=== PATIENT | female | born 1945 | race Caucasian/White ===

== ENCOUNTER → 2016-11-25 08:26 | Outpatient (CLI) | payer MEDICARE | END | disposition home or self-care (01) | LOC: D.MRI 08:00 | DX: R10.9 Unspecified abdominal pain (principal) ==

== ENCOUNTER → 2016-12-16 13:09 | Outpatient (CLI) | payer MEDICARE ==
[2016-12-16 13:56] LABS: ALBUMIN 3.8 g/dL (3.4-5.0); BILIRUBIN - DIRECT 0.09 mg/dL (0.00-0.30); BILIRUBIN - INDIRECT 0.51 mg/dL (0.00-1.00); BILIRUBIN - TOTAL 0.6 mg/dL (0.2-1.3); PROTEIN - SERUM 6.8 g/dL (6.4-8.2)
== END | disposition home or self-care (01) ==
LOC: D.LAB 12-15 11:45
PROVIDERS: Internal Medicine Gastroenterology
DX: R74.8 Abnormal levels of other serum enzymes (principal)

== ENCOUNTER → 2017-01-19 12:35 | Outpatient (CLI) | payer MEDICARE ==
[2017-01-19 13:33] LABS: ALBUMIN 3.6 g/dL (3.4-5.0); BILIRUBIN - DIRECT 0.09 mg/dL (0.00-0.30); BILIRUBIN - INDIRECT 0.19 mg/dL (0.00-1.00); BILIRUBIN - TOTAL 0.28 mg/dL (0.2-1.3); PROTEIN - SERUM 7.1 g/dL (6.4-8.2)
== END | disposition home or self-care (01) ==
LOC: D.LAB 01-17 08:00
PROVIDERS: Internal Medicine Gastroenterology
DX: R74.8 Abnormal levels of other serum enzymes (principal)

== ENCOUNTER 2017-03-19 15:12 | Emergency (ER) | payer MEDICARE ==
[2017-03-19 15:40] LABS: BASOPHILS 0.5 % (0-2); EOSINOPHILS 1.4 % (0-7); HEMATOCRIT 38.8 % (36.0-48.0); HEMOGLOBIN 12.8 g/dL (12-16); IMMATURE GRANULOCYTES 0.2 % (0-5); MCH 30.7 pg (26.0-34.0); MONOCYTES 8.3 % (2-11); NEUTROPHILS 62.6 % (40-80); PLATELET COUNT 209 10x3/uL (130-400); RBC 4.17 10x6/uL (4.00-5.40); RDW 14.3 % (11.5-14.5); WBC 6.5 10x3/uL (4.8-10.8)
[2017-03-19 15:59] LABS: ALBUMIN 4.2 g/dL (3.4-5.0); ANION GAP 9.6 mmol/L (8-16); BILIRUBIN - TOTAL 0.34 mg/dL (0.2-1.3); CALCIUM 9.5 mg/dL (8.5-10.1); CARBON DIOXIDE 30.7 mmol/L (21.0-32.0); CREATININE - SERUM 1.2 mg/dL (0.6-1.3); POTASSIUM - SERUM 4.3 mmol/L (3.5-5.1); PROTEIN - SERUM 7.4 g/dL (6.4-8.2)
[2017-03-19 17:15] LABS: APPEARANCE CLEAR (CLEAR); BILIRUBIN NEGATIVE (NEGATIVE); COLOR STRAW (YELLOW); GLUCOSE NEGATIVE (NEGATIVE); KETONE NEGATIVE (NEGATIVE); LEUKOCYTE ESTERASE NEGATIVE (NEGATIVE); NITRITE NEGATIVE (NEGATIVE); PROTEIN NEGATIVE (NEGATIVE); SPECIFIC GRAVITY 1.005 (1.005-1.020); UROBILINOGEN NORMAL (NORMAL)
== END 2017-03-19 19:13 | disposition home or self-care (01) ==
LOC: D.ER 15:12
PROVIDERS: Emergency Medicine
DX: K29.00 Acute gastritis without bleeding (principal); R00.1 Bradycardia, unspecified; J45.909 Unspecified asthma, uncomplicated; J44.9 Chronic obstructive pulmonary disease, unspecified; M79.7 Fibromyalgia; K58.9 Irritable bowel syndrome, unspecified

== ENCOUNTER → 2018-10-02 16:31 | Outpatient (CLI) | payer MEDICARE | END | disposition home or self-care (01) | LOC: D.MRI 16:30 | DX: M54.12 Radiculopathy, cervical region (principal) ==

== ENCOUNTER 2019-10-07 14:32 | Emergency (ER) | payer MEDICARE ==
[~2019-10-07] VITALS: Ht 162.6 cm; Wt 45.5 kg
[2019-10-07 14:46] VITALS: Ht 162.6 cm; Wt 45.5 kg
[2019-10-07] MEDS ORDERED: VENTOLIN (14:50)
[2019-10-07] MEDS ORDERED: ZANAFLEX4 MG PO (14:50)
[2019-10-07] MEDS ORDERED: ULTRAM50 MG PO (14:51)
[2019-10-07] MEDS ORDERED: CYMBALTA30 MG PO (14:51)
[2019-10-07] MEDS ORDERED: ATIVAN1 MG PO (14:51)
[2019-10-07] MEDS ORDERED: ZOFRAN8 MG PO (14:52)
[2019-10-07] MEDS ORDERED: ADVAIR HFA [SP]12 GM INH (14:52)
[2019-10-07] MEDS ORDERED: LYRICA75 MG PO (14:52)
[2019-10-07] MEDS ORDERED: MAG-OX 400 MG400 MG PO (14:52)
[2019-10-07] MEDS ORDERED: DEXILANT60 MG PO (14:52)
[2019-10-07] MEDS ORDERED: [UNRECOGNIZED DRUG - OTHER] (14:53)
[2019-10-07 15:15] LABS: BASOPHILS 0.3 % (0-2); EOSINOPHILS 0.5 % (0-7); HEMATOCRIT 36.6 % (36.0-48.0); IMMATURE GRANULOCYTES 0.1 % (0-5); LYMPHOCYTES 29.3 % (15-50); MCH 30.3 pg (26.0-34.0); MCHC 32.8 g/dL (31.0-37.0); MCV 92.4 fL (80.0-100.0); MEAN PLATELET VOLUME 10.7 fL (7.4-10.4); MONOCYTES 7.8 % (2-11); PLATELET COUNT 219 10x3/uL (130-400); RBC 3.96 10x6/uL (4.00-5.40); RDW 15.3 % (11.5-14.5); WBC 7.5 10x3/uL (4.8-10.8)
[2019-10-07 15:34] LABS: CALC OSMOLALITY 282 mosm/kg (275-300); CALCIUM 9.1 mg/dL (8.5-10.1); CARBON DIOXIDE 34.6 mmol/L (21.0-32.0); CHLORIDE - SERUM 101 mmol/L (98-107); GLUCOSE 90 mg/dL (74-106); POTASSIUM - SERUM 3.1 mmol/L (3.5-5.1); SODIUM 141 mmol/L (136-145); UREA NITROGEN 18 mg/dL (7-18); eGFR NON AFRICAN AMERICAN 57 mL/min (90-120)
[2019-10-07 15:43] LABS: ALBUMIN 3.5 g/dL (3.4-5.0); ALKALINE PHOSPHATASE 147 U/L (46-116); ALT (SGPT) 29 U/L (10-68); AMYLASE - SERUM 26 U/L (25-115); BILIRUBIN - TOTAL 0.27 mg/dL (0.2-1.3); LIPASE 54 U/L (73-393); PROTEIN - SERUM 7.5 g/dL (6.4-8.2)
[2019-10-07 15:44] LABS: TROPONIN-I < 0.017 ng/mL (0.000-0.060)
[2019-10-07 15:45] LABS: APPEARANCE CLEAR (CLEAR); BILIRUBIN NEGATIVE (NEGATIVE); COLOR YELLOW (YELLOW); GLUCOSE NEGATIVE (NEGATIVE); KETONE NEGATIVE (NEGATIVE); NITRITE NEGATIVE (NEGATIVE); PROTEIN NEGATIVE (NEGATIVE); SPECIFIC GRAVITY 1.005 (1.005-1.020); UROBILINOGEN NORMAL (NORMAL)
[2019-10-07] MEDS ORDERED: MIRALAX17 GM PO (17:40)
[2019-10-07 17:51] VITALS: BP 122/65
== END 2019-10-07 17:53 | disposition home or self-care (01) ==
LOC: D.ER 14:32
PROVIDERS: Family Medicine
DX: K59.00 Constipation, unspecified (principal); R10.84 Generalized abdominal pain; R11.0 Nausea; J44.9 Chronic obstructive pulmonary disease, unspecified; F17.210 Nicotine dependence, cigarettes, uncomplicated; K21.9 Gastro-esophageal reflux disease without esophagitis; M79.7 Fibromyalgia

== ENCOUNTER → 2020-02-05 14:03 | Outpatient (CLI) | payer MEDICARE ==
[2019-12-20 06:38] VITALS: BMI 17.2
[~2020-02-05 14:03] MED LIST: ADVAIR HFA [SP]12 GM INH; ATIVAN1 MG PO; BACLOFEN10 MG PO; CYMBALTA30 MG PO; DEXILANT60 MG PO; HYDROCODON-ACE1 EAC7 PO; LYRICA75 MG PO; MAG-OX 400 MG400 MG PO; MIRALAX17 GM PO; ONDANSETRON ODT8 MG PO; OXYBUTYNIN CHLOR5 MG PO; ULTRAM50 MG PO; VENTOLIN INH; ZANAFLEX4 MG PO; ZOFRAN8 MG PO; [UNRECOGNIZED DRUG - OTHER]
[2020-02-05 14:38] LABS: ALBUMIN 3.3 g/dL (3.4-5.0); ANION GAP 10.6 mmol/L (8-16); BILIRUBIN - TOTAL 0.25 mg/dL (0.2-1.3); CALCIUM 8.6 mg/dL (8.5-10.1); CARBON DIOXIDE 30.9 mmol/L (21.0-32.0); CREATININE - SERUM 0.9 mg/dL (0.6-1.3); POTASSIUM - SERUM 4.5 mmol/L (3.5-5.1); PROTEIN - SERUM 6.5 g/dL (6.4-8.2)
[2020-02-05 14:58] LABS: HEMATOCRIT 36.2 % (36.0-48.0); HEMOGLOBIN 11.3 g/dL (12-16); MCH 28.9 pg (26.0-34.0); MCHC 31.2 g/dL (31.0-37.0); MCV 92.6 fL (80.0-100.0); MEAN PLATELET VOLUME 11.5 fL (7.4-10.4); RBC 3.91 10x6/uL (4.00-5.40); RDW 15.5 % (11.5-14.5); WBC 6.1 10x3/uL (4.8-10.8)
[2020-02-05 15:12] LABS: PLATELET COUNT 267 10x3/uL (130-400)
[2020-02-05 15:45] LABS: EOSINOPHILS 3 % (0-7); LYMPHOCYTES 33 % (15-50); MONOCYTES 4 % (2-11); NEUTROPHILS 60 % (40-80); PLATELET ESTIMATE NORMAL
== END | disposition home or self-care (01) ==
LOC: D.LABREF 14:03
PROVIDERS: ATTEND Internal Medicine Medical Oncology
DX: C44.629 Squamous cell carcinoma of skin of left upper limb, including shoulder (principal); J44.0 Chronic obstructive pulmonary disease with (acute) lower respiratory infection; C44.229 Squamous cell carcinoma of skin of left ear and external auricular canal

== ENCOUNTER → 2020-03-05 18:53 | Outpatient (CLI) | payer MEDICARE ==
[2019-12-20 06:38] VITALS: BMI 17.2
== END | disposition home or self-care (01) ==
LOC: D.LABREF 18:53
PROVIDERS: ATTEND Orthopaedic Surgery
DX: M17.11 Unilateral primary osteoarthritis, right knee (principal)

== ENCOUNTER 2020-03-10 13:16 | Inpatient (IN) | payer MEDICARE ==
[~2020-03-10] VITALS: Ht 162.6 cm; Wt 47.2 kg
--- NOTE | ~2020-03-10 | OP ---
PATIENT NAME: ELEANOR DUMONT MEDICAL RECORD: [id number] :45 LOCATION:D.M3 D.1211 ADMISSION DATE:03/17/20 SURGEON: BRET MEDINA MD DATE OF OPERATION: 03/17/2020 PREOPERATIVE DIAGNOSIS: Degenerative arthritis of the right knee. 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 PROCEDURE: Right total knee arthroplasty. SURGEON: Bret Medina MD ANESTHESIA: General. INTRAOPERATIVE COMPLICATIONS: None. SUMMARY OF PATHOLOGIC FINDINGS: The patient had severe end-stage eburnation of the cartilage; however, findings about the synovium hinted to the fact that there could be an inflammatory component. IMPLANTS USED: Sharypic triathlon total knee arthroplasty system, size 4 distal femur, 4 tibial baseplate, size 4 x 11 tibial insert and a symmetric patella size 31 x 9. OPERATIVE SUMMARY IN DETAIL: After obtaining the appropriate preoperative orthopedic surgery consent as well as anesthetic consultation evaluation and clearance, the patient was brought to the operating room and placed on the operating table in a supine position. After adequate general laryngeal mask airway was administered, tourniquet was placed about the proximal aspect of the right lower extremity. Right lower extremity was then prepped and draped in routine sterile fashion. The leg was elevated and exsanguinated, tourniquet inflated to 350 mmHg. A routine timeout was taken and agreed upon by all given the patient's unique identifiers. Midline incision was taken down for a paramedian arthrotomy. Paramedian arthrotomy was performed. Patella was everted, distal femur was exposed. Soft tissue excision was done in the usual fashion. An intramedullary guide hole was created for distal intramedullary guided femoral cut. This was then followed by complete exposure of the proximal tibia. After the residual soft tissue, the proximal tibia was removed. Intramedullary guided cut was made likewise. Appropriate measurements were taken. Chamfer cuts made on the distal femur. Trials were put in corresponding to the above-mentioned trials, taken through range of motion and found to be stable in all planes. Final proximal tibia and distal femoral preparations were then followed by excision of the arthritic patellar surface and it was then prepared for final implantation. A total knee cavity was then irrigated with pulsatile lavage. Bone ends were dried. Final components were cemented in place. All excess cement was removed. After the cement was allowed to harden, it was taken through range of motion and found to be stable in all planes. A gram of vancomycin and a gram of tobramycin were then put into the knee. The paramedian arthrotomy was then closed with #2 Ethibond by BREANA Mayer, including skin closed with #1 Vicryl, 2-0 Vicryl and skin tova. Sterile dressings were applied. Tourniquet was deflated. The patient was awakened, taken to recovery room in stable condition. All final needle and sponge counts were correct. OPERATIVE REPORT [id number] ELEANOR DUMONT TRANSINT:[id number] Voice Confirmation ID: [id number] DOCUMENT ID: [id number] CAROL CAI, BRET COLLINS CC: [id number] DICTATION DATE: 03/20/20840 CULTURE MANAGER: 03/20/20 1511 DIS IN 03/19/[address] [facility] [address] [place] [address]
[2020-03-12] MEDS ORDERED: OXYBUTYNIN CHLOR5 MG (12:01)
[2020-03-12 12:57] LABS: CALCIUM 8.9 mg/dL (8.5-10.1); CARBON DIOXIDE 29.9 mmol/L (21.0-32.0); CREATININE - SERUM 0.9 mg/dL (0.6-1.3); POTASSIUM - SERUM 3.9 mmol/L (3.5-5.1)
[2020-03-12 13:00] LABS: INR 0.98 (0.85-1.17); PROTIME 12.9 SECONDS (11.6-15.0)
[2020-03-12 13:01] LABS: APTT 34.8 SECONDS (22.8-39.4)
[2020-03-12 13:10] LABS: BILIRUBIN NEGATIVE (NEGATIVE); GLUCOSE NEGATIVE (NEGATIVE); KETONE NEGATIVE (NEGATIVE); NITRITE NEGATIVE (NEGATIVE); SPECIFIC GRAVITY 1.005 (1.005-1.020); UROBILINOGEN NORMAL (NORMAL)
[2020-03-12 14:58] LABS: BASOPHILS 0.4 % (0-2); EOSINOPHILS 3.2 % (0-7); HEMATOCRIT 36.8 % (36.0-48.0); HEMOGLOBIN 11.8 g/dL (12-16); LYMPHOCYTES 23.2 % (15-50); MCH 29.2 pg (26.0-34.0); MCHC 32.1 g/dL (31.0-37.0); MCV 91.1 fL (80.0-100.0); MEAN PLATELET VOLUME 10.4 fL (7.4-10.4); MONOCYTES 7.5 % (2-11); NEUTROPHILS 65.7 % (40-80); PLATELET COUNT 263 10x3/uL (130-400); RBC 4.04 10x6/uL (4.00-5.40); WBC 4.7 10x3/uL (4.8-10.8)
[2020-03-17] VITALS (10 sets, daily range): BP systolic 91–153; BP diastolic 44–87; BMI 17.2; BMI 17.9
[2020-03-17] MEDS ORDERED: FLUTICASONE PRO16 GM NASAL (08:16)
--- NOTE | 2020-03-17 12:00 | NUR ---
RECEIVED TO ROOM 1211 VIA BED FROM PACU. A/O X3. DRESSING TO RIGHT KNEE DRY AND INTACT. VSS. ROUSES EASILY TO VERBAL STIMULATION. NO NEEDS NOTED.
--- NOTE | 2020-03-17 17:30 | MORECARE ---
CASE MANAGEMENT DISCHARGE SUMMARY PATIENT: ELEANOR DUMONT UNIT: [id number] ADM DATE: 03/17/20 AGE: 74 : 45 SEX: F ROOM/BED: D.1211 AUTHOR: FRANCOISE WINSTON PHYSICIAN: REFERRING PHYSICIAN: BRET MEDINA MD DATE OF SERVICE: 03/17/20 Discharge Plan Patient Name: ELEANOR DUMONT Facility: [facility]:[place] : 1945 Planned Disposition: Home Anticipated Discharge Date: 03/18/20 Discharge Date: Expected LOS: 1 Initial Reviewer: [email or web address] Initial Review Date: 03/17/2020 Generated: 03/17/20 6:29 pm Comments DCP- Discharge Planning Updated by [email or web address]: Jennifer Peterson on 03/17/20 4:[address] DC Needs: Resumption of [facility]. CM met with patient regarding DC needs/plans. Patient agrees to CM interview. PCP: Dr Swanson. Pharmacy: [facility]. HHS: Current with [facility]. DME: MINAL Anderson, Walk-in shower w/seat. Emergency contact: Usama Florence, (spouse) [phone]. Patient gives permission to speak with her . Denies use of community resources or being hospitalized within past 30 days. Patient feels her home is a safe environment. Transportation at [facility] will be her , Usama. Patient Name: ELEANOR DUMONT Page [phone] at 1730 All edits/amendments must be made on the electronic document DICTATION DATE: 03/17/201728 ACADEMIC SUCCESS COORDINATOR: PHYLICIA 03/17/201728 RPT#: [id number] DC DATE: STATUS: ADM IN [facility] [address] [place] [address] END OF REPORT
--- NOTE | 2020-03-17 17:47 | MORECARE ---
CASE MANAGEMENT DISCHARGE SUMMARY PATIENT: ELEANOR DUMONT UNIT: [id number] ADM DATE: 03/17/20 AGE: 74 : 45 SEX: F ROOM/BED: D.1211 AUTHOR: FRANCOISE WINSTON PHYSICIAN: REFERRING PHYSICIAN: BRET MEDINA MD DATE OF SERVICE: 03/17/20 Discharge Plan Patient Name: ELEANOR DUMONT Facility: [facility]:[place] : 1945 Planned Disposition: Home Anticipated Discharge Date: 03/18/20 Discharge Date: Expected LOS: 1 Initial Reviewer: [email or web address] Initial Review Date: 03/17/2020 Generated: 03/17/20 6:46 pm Comments DCP- Discharge Planning Updated by [id number]: Jennifer Peterson on 03/17/20 4:[address] DC Needs: Resumption of [facility]. CM met with patient regarding DC needs/plans. Patient agrees to CM interview. PCP: Dr Swanson. Pharmacy: [facility]. HHS: Current with Health: [facility]. DME: MINAL Anderson, Walk-in shower w/seat. Emergency contact: Usama Florence, (spouse) [phone]. Patient gives permission to speak with her . Denies use of community resources or being hospitalized within past 30 days. Patient feels her home is a safe environment. Transportation at DC will be her , Usama. CM will contact Health: [facility] 03/18. Last DP export: 03/17/20 4:30 p Patient Name: ELEANOR DUMONT Page [id number] at 1747 All edits/amendments must be made on the electronic document DICTATION DATE: 03/17/201745 SENIOR STRATEGY ANALYST: PHYLICIA 03/17/201745 RPT#: [id number] DC DATE: STATUS: ADM IN [facility] [address] [place] [address] END OF REPORT
--- NOTE | 2020-03-17 19:16 | NUR ---
ATE ALL OF SUPPER. DENIES NEEDS. NO CHANGES NOTED.
--- NOTE | 2020-03-17 19:25 | NUR ---
PATIENT RESTING IN BED WITH NO S/S OF DISTRESS. PATIENT DENIES NEEDS AT THIS TIME. BED IN LOWEST POSITION AND CALL LIGHT WITHIN REACH. ENCOURAGED THE PATIENT TO CALL IF SHE HAS NEEDS. WILL CONTINUE TO MONITOR.
--- NOTE | 2020-03-17 19:45 | NUR ---
PLACED PATIENT ON CPM MACHINE TO RIGHT KNEE
[2020-03-18 04:11] VITALS: BP 128/52
--- NOTE | 2020-03-18 04:30 | NUR ---
PLACED PATIENT ON CPM TO RIGHT KNEE
[2020-03-18 06:54] LABS: HEMATOCRIT 28.3 % (36.0-48.0); HEMOGLOBIN 9.2 g/dL (12-16); MCH 28.9 pg (26.0-34.0); MCHC 32.5 g/dL (31.0-37.0); MEAN PLATELET VOLUME 9.7 fL (7.4-10.4); RBC 3.18 10x6/uL (4.00-5.40); RDW 14.6 % (11.5-14.5)
[2020-03-18 07:20] VITALS: BP 124/53
--- NOTE | 2020-03-18 07:56 | NUR ---
AWAKE AND ALERT. ORIENTED X3. TEMP 99.6. ENCOURAGED TO USE IS INSTRUCTED, SOME REITERATION REQUIRED FOR SUCCESSFUL RETURN DEMONSTRATION. WILL MONITOR. LUNGS ARE CLEAR BILATERALLY, NO COUGH NOTED. SKIN IS INTACT WTIHOUT REDNESS EXCEPT INCISION TO RIGHT KNEE WHICH HAS A DRY INTACT DRESSING IN PLACE. TOOK SELF OFF CPM, STATED "IT STOPPED SO I FIGURED IT WAS DONE". DISCUSSED REASON FOR LENGTH OF USE WELL BEING IN LOW POSITION TO D/C MACHINE. IV TO LEFT FOREARM IS PATENT WITHOUT REDNESS AT INSERTION SITE. ASSISTED WITH BED ROMEO PER STAFF. VOIDED 400CC CLEAR YELLOW URINE. JANETT CARE PER STAFF. DENIES NEEDS. BREAKFAST SERVED IN ROOM.
--- NOTE | 2020-03-18 08:58 | MORECARE ---
CASE MANAGEMENT DISCHARGE SUMMARY PATIENT: ELEANOR DUMONT UNIT: [id number] ADM DATE: 03/17/20 AGE: 74 : 45 SEX: F ROOM/BED: D.1211 AUTHOR: FRANCOISE WINSTON PHYSICIAN: REFERRING PHYSICIAN: BRET MEDINA MD DATE OF SERVICE: 03/18/20 Discharge Plan Patient Name: ELEANOR DUMONT Facility: [facility]:[place] : 1945 Planned Disposition: Home Anticipated Discharge Date: 03/18/20 Discharge Date: Expected LOS: 1 Initial Reviewer: [email or web address] Initial Review Date: 03/17/2020 Generated: 03/18/20 9:57 am Comments DCP- Discharge Planning Updated by [email or web address]: Jennifer Peterson on 03/18/20 7:[address] DC Needs: Resumption of [facility]. CM met with patient regarding DC needs/plans. Patient agrees to CM interview. PCP: Dr Swanson. Pharmacy: [facility] HHS: Current with [facility]. DME: CPM, Justin, BSC, Walk-in shower w/seat. Emergency contact: Usama Florence, (spouse) [phone]. Patient gives permission to speak with her . Denies use of community resources or being hospitalized within past 30 days. Patient feels her home is a safe environment. Transportation at DC will be her , Usama. CM will contact [facility] 03/18. Last DP export: 03/17/20 4:46 p Patient Name: ELEANOR DUMONT Page [phone] at 0858 All edits/amendments must be made on the electronic document DICTATION DATE: 03/18/2057 DIPLOMA DENTAL ASSISTANT: PHYLICIA 03/18/20 0857 RPT#: [id number] DC DATE: STATUS: ADM IN [facility] [address] [place] [address] END OF REPORT
[2020-03-18 09:54] VITALS: Ht 162.6 cm; Wt 47.2 kg
--- NOTE | 2020-03-18 10:00 | NUR ---
ATE ALMOST ALL OF BREAKFAST. TOOK AM MEDS WITHOUT DIFFICULTY. REQUESTED AND GIVEN ONE PERCOCET PO FOR C/O RIGHT KNEE PAIN LEVEL 10. WILL MONITOR.
--- NOTE | 2020-03-18 10:41 | NUR ---
UP IN CHAIR AT BEDSIDE PER PT. C/O HEADACHE WITH ACTIVITY. REQUESTED AND GIVEN ONE MG ATIVAN PO FOR SAME. WILL MONITOR.
[2020-03-18 12:07] VITALS: BP 132/65
--- NOTE | 2020-03-18 13:52 | NUR ---
AMBULATED IN HALLWAY WITH PT USING RW. REQUESTED AND GIVEN ONE PERCOCET WITH ONE ZOFRAN PO FOR PAIN WITH AMBULATION AND NAUSEA. WILL MONITOR.
--- NOTE | 2020-03-18 14:37 | MORECARE ---
CASE MANAGEMENT DISCHARGE SUMMARY PATIENT: ELEANOR DUMONT UNIT: [id number] ADM DATE: 03/17/20 AGE: 74 : 45 SEX: F ROOM/BED: D.1211 AUTHOR: FRANCOISE WINSTON PHYSICIAN: REFERRING PHYSICIAN: BRET MEDINA MD DATE OF SERVICE: 03/18/20 Discharge Plan Patient Name: ELEANOR DUMONT Facility: [facility]:[place] : 1945 Planned Disposition: Home Anticipated Discharge Date: 03/18/20 Discharge Date: Expected LOS: 1 Initial Reviewer: [email or web address] Initial Review Date: 03/17/2020 Generated: 03/18/20 3:36 pm Comments DCP- Discharge Planning Updated by [email or web address]: Jennifer Peterson on 03/18/20 1:[address] CM contacted [place] with [facility] for resumption of services. Faxed required information to [phone]. DCP- Discharge Planning Updated by [email or web address]: Jennifer Peterson on 03/18/20 7:[address] DC Needs: Resumption of [facility]. CM met with patient regarding DC needs/plans. Patient agrees to CM interview. PCP: Dr Swanson. Pharmacy: [email or web address]. HHS: Current with [facility]. DME: CPM, Walker, BSC, Walk-in shower w/seat. Emergency contact: Usama Florence, (spouse) [phone]. Patient gives permission to speak with her . Denies use of community resources or being hospitalized within past 30 days. Patient feels her home is a safe environment. Transportation at [place] will be her , Usama. CM will contact [facility] 03/18. External Providers [facility] Next Contact Date: Service Request Date: Service Type: Resolution: Reviewer: Comments: External [facility] Next Contact Date: Service Request Date: Service Type: Resolution: Reviewer: Comments: Last DP export: 03/18/20 8:18 a Patient Name: ELEANOR DUMONT Page 57612 at 1437 All edits/amendments must be made on the electronic document DICTATION DATE: 03/18/201435 HOME AGENT: PHYLICIA 03/18/201435 RPT#: [id number] DC DATE: STATUS: ADM IN [facility] [address] [place] [address] END OF REPORT
[2020-03-18 16:29] VITALS: BP 160/84
--- NOTE | 2020-03-18 16:55 | MORECARE ---
CASE MANAGEMENT DISCHARGE SUMMARY PATIENT: ELEANOR DUMONT UNIT: [id number] ADM DATE: 03/17/20 AGE: 74 : 45 SEX: F ROOM/BED: D.1211 AUTHOR: FRANCOISE WINSTON PHYSICIAN: REFERRING PHYSICIAN: BRET MEDINA MD DATE OF SERVICE: 03/18/20 Discharge Plan Patient Name: ELEANOR DUMONT Facility: [facility]:[place] : 1945 Planned Disposition: Home Anticipated Discharge Date: 03/18/20 Discharge Date: Expected LOS: 1 Initial Reviewer: [email or web address] Initial Review Date: 03/17/2020 Generated: 03/18/20 5:55 pm Comments DCP- Discharge Planning Updated by [email or web address]: Jennifer Peterson on 03/18/20 1:[address] CM contacted [place] with [facility] for resumption of services. Faxed required information to [phone]. DCP- Discharge Planning Updated by [email or web address]: Jennifer Peterson on 03/18/20 7:[address] DC Needs: Resumption of [facility]. CM met with patient regarding DC needs/plans. Patient agrees to CM interview. PCP: Dr Swanson. Pharmacy: [facility]. HHS: Current with [facility]. DME: [employer], Justin, BSC, Walk-in shower w/seat. Emergency contact: Usama Florence, (spouse) [phone]. Patient gives permission to speak with her . Denies use of community resources or being hospitalized within past 30 days. Patient feels her home is a safe environment. Transportation at DC will be her , Usama. CM will contact [facility] 03/18. Last DP export: 03/18/20 1:37 p Patient Name: ELEANOR DUMONT Page [phone] at 1655 All edits/amendments must be made on the electronic document DICTATION DATE: 03/18/201654 HAND CLOTH EXAMINER: PHYLICIA 03/18/201654 RPT#: [id number] DC DATE: STATUS: ADM IN [place] [address] [place] [address] END OF REPORT
--- NOTE | 2020-03-18 18:00 | NUR ---
ATE ONLY ABOUT 25% OF SUPPER. STATED SHE WASN'T HUNGRY. UP TO BR WITH ONE PERSON MIN ASSIST AND RW. CPM PLACED AT THIS TIME. DENIES NEEDS.
--- NOTE | 2020-03-18 18:42 | NUR ---
REQUESTED AND GIVEN ONE PERCOCET PO AT THIS TIME FOR C/O RIGHT KNEE PAIN LEVEL 7. WILL MONITOR.
--- NOTE | 2020-03-18 19:31 | NUR ---
PT RECEIVED IN BED TALKING TO ON PHONE. ASSIST GIVEN TO BATHROOM. PT USES WALKER WITH SLOW GAIT. PT BACK IN BED. WILL CONTINUE TO OBSERVE
[2020-03-18 20:00] VITALS: BP 168/77
--- NOTE | 2020-03-18 22:47 | NUR ---
PT ASSISTED TO BATHROOM 3 TIMES TO THIS POINT. USES WALKER WITH SLOW GAIT. WILL CONTINUE TO ASSIST NEEDED. CALL LIGHT IN REACH. WILL CONTINUE TO OBSERVE.
[2020-03-19] VITALS: BP 169/80
--- NOTE | 2020-03-19 01:58 | NUR ---
PT ASSISTED TO BATHROOM, URINE ONLY NOTED. COMPLAINS OF PAIN WITH PRN PAIN MEDICATION GIVEN PER MAR. PT IN BED WITH CALL LIGTH IN REACH.
--- NOTE | 2020-03-19 06:15 | NUR ---
PT OFF CPM AT 191 AND BACK ON AT 449. PRN MUSCLE RELAXER GIVEN PER JAN. WILL CONTINUE TO OBSERVE.
[2020-03-19 06:29] LABS: HEMATOCRIT 33.3 % (36.0-48.0); HEMOGLOBIN 10.6 g/dL (12-16); MCH 28.5 pg (26.0-34.0); MCHC 31.8 g/dL (31.0-37.0); MCV 89.5 fL (80.0-100.0); MEAN PLATELET VOLUME 10.1 fL (7.4-10.4); RBC 3.72 10x6/uL (4.00-5.40); RDW 15.2 % (11.5-14.5); WBC 6.6 10x3/uL (4.8-10.8)
[2020-03-19 08:15] VITALS: BP 186/82
[2020-03-19] MEDS ORDERED: ELIQUIS2.5 MG PO (09:17)
[2020-03-19] MEDS ORDERED: PERCOCET 10-321 EAC1 PO (09:18)
[2020-03-19 13:00] VITALS: BP 156/77
--- NOTE | 2020-03-19 13:40 | NUR ---
PT IS DRESSED AFTER DRSG CHANGE. DC INSTRUCTION GIVEN. VERBALIZES UNDERSTANDING. DAUGHTER IS ON THE WAY TO PICK HER UP.
--- NOTE | 2020-03-19 16:15 | MORECARE ---
CASE MANAGEMENT DISCHARGE SUMMARY PATIENT: MARLYN DUMONT UNIT: [id number] ADM DATE: 03/17/20 AGE: 74 : 45 SEX: F ROOM/BED: D.1211 AUTHOR: CATRACHITO,DOC PHYSICIAN: REFERRING PHYSICIAN: BRET MEDINA MD DATE OF SERVICE: 03/19/20 Discharge Plan Patient Name: MARLYN DUMONT Facility: [facility]:[place] : 1945 Planned Disposition: Home Anticipated Discharge Date: 03/19/20 Discharge Date: Expected LOS: 2 Initial Reviewer: [email or web address] Initial Review Date: 03/17/2020 Generated: 03/19/20 5:15 pm Comments DCP- Discharge Planning Updated by [email or web address]: Jennifer Peterson on 03/19/20 3:[address] CM notified Iva, with [facility] of DC. DCP- Discharge Planning Updated by [email or web address]: Jennifer Peterson on 03/18/20 1:[address] CM contacted Vanessa with [facility] for resumption of services. Faxed required information to [phone]. DCP- Discharge Planning Updated by [email or web address]: Jennifer Peterson on 03/18/20 7:[address] DC Needs: Resumption of [facility]. CM met with patient regarding DC needs/plans. Patient agrees to CM interview. PCP: Dr Swanson. Pharmacy: [facility] HHS: Current with [facility]. DME: CPM, Walker, BSC, Walk-in shower w/seat. Emergency contact: Usama Florence, (spouse) [phone]. Patient gives permission to speak with her . Denies use of community resources or being hospitalized within past 30 days. Patient feels her home is a safe environment. Transportation at DC will be her , Usama. CM will contact [facility] 03/18. Coverage Notice Reviewer: [id number] - Jennifer Peterson Notice Issued Date-Time: 03/19/2020 13:35 Notice Type: IM Discharge Notice Notice Delivered To: Patient Relationship to Patient: Self Home Care Physical Therapist Name: Marlyn Florence Delivery Method: HAND - Hand Delivered Sandy Days: Prior Verbal Notification: Recipient Understood Notice: Yes Recipient Signature: Yes Med Rec Note Co-signed by Attending: Coverage Notice Comment: DC IMM signed/given to patient. Original to chart. Last DP export: 03/18/20 3:55 p Patient Name: MARLYN DUMONT Page 44014 at 1615 All edits/amendments must be made on the electronic document DICTATION DATE: 03/19/201614 STONE MASON: PHYLICIA 03/19/201614 RPT#: [id number] DC DATE: STATUS: ADM IN [facility] [address] [place] [address] END OF REPORT
--- NOTE | 2020-03-19 17:22 | MORECARE ---
CASE MANAGEMENT DISCHARGE SUMMARY PATIENT: MARLYN DUMONT UNIT: [id number] ADM DATE: 03/17/20 AGE: 74 : 45 SEX: F ROOM/BED: D.1211 AUTHOR: CATRACHITO,DOC PHYSICIAN: REFERRING PHYSICIAN: BRET MEDINA MD DATE OF SERVICE: 03/19/20 Discharge Plan Patient Name: MARLYN DUMONT Facility: [facility]:[place] : 1945 Planned Disposition: Home Anticipated Discharge Date: 03/19/20 Discharge Date: Expected LOS: 2 Initial Reviewer: [email or web address] Initial Review Date: 03/17/2020 Generated: 03/19/20 6:22 pm Comments DCP- Discharge Planning Updated by [id number]: Jennifer Peterson on 03/19/20 3:[address] CM notified Iva, with [facility] of DC. DCP- Discharge Planning Updated by [id number]: Jennifer Peterson on 03/18/20 1:[address] CM contacted Vanessa with [facility] for resumption of services. Faxed required information to [phone]. DCP- Discharge Planning Updated by [email or web address]: Jennifer Peterson on 03/18/20 7:[address] DC Needs: Resumption of [facility]. CM met with patient regarding DC needs/plans. Patient agrees to CM interview. PCP: Dr Swanson. Pharmacy: [facility]. HHS: Current with [facility]. DME: CPM, Walker, BSC, Walk-in shower w/seat. Emergency contact: Usama Florence, (spouse) [phone]. Patient gives permission to speak with her . Denies use of community resources or being hospitalized within past 30 days. Patient feels her home is a safe environment. Transportation at DC will be her , Usama. CM will contact [facility] 03/18. Coverage Notice Reviewer: [email or web address] - Jennifer Peterson Notice Issued Date-Time: 03/19/2020 13:35 Notice Type: IM Discharge Notice Notice Delivered To: Patient Relationship to Patient: Self Pipe Manufacture Supervisor Name: Marlyn Florence Delivery Method: HAND - Hand Delivered Sandy Days: Prior Verbal Notification: Recipient Understood Notice: Yes Recipient Signature: Yes Med Rec Note Co-signed by Attending: Coverage Notice Comment: DC IMM signed/given to patient. Original to chart. Last DP export: 03/19/20 3:15 p Patient Name: MARLYN DUMONT Page [id number] at 1722 All edits/amendments must be made on the electronic document DICTATION DATE: 03/19/201721 BOOTH CLEANER: PHYLICIA 03/19/201721 RPT#: [id number] DC DATE: STATUS: ADM IN [facility] [address] [place] [address] END OF REPORT
--- NOTE | 2020-03-19 19:32 | MORECARE ---
CASE MANAGEMENT DISCHARGE SUMMARY PATIENT: MARLYN DUMONT UNIT: [id number] ADM DATE: 03/17/20 AGE: 74 : 45 SEX: F ROOM/BED: D.1211 AUTHOR: CATRACHITO,DOC PHYSICIAN: REFERRING PHYSICIAN: BRET MEDINA MD DATE OF SERVICE: 03/19/20 Discharge Plan Patient Name: MARLYN DUMONT Facility: [facility]:[place] : 1945 Planned Disposition: Home Anticipated Discharge Date: 03/19/20 Discharge Date: 03/19/2020 Expected LOS: 2 Initial Reviewer: [email or web address] Initial Review Date: 03/17/2020 Generated: 03/19/20 8:31 pm Comments DCP- Discharge Planning Updated by [email or web address]: Jennifer Peterson on 03/19/20 3:[address] CM notified Iva, with [facility] of DC. DCP- Discharge Planning Updated by [email or web address]: Jennifer Peterson on 03/18/20 1:[address] CM contacted Vanessa with [facility] for resumption of services. Faxed required information to [phone]. DCP- Discharge Planning Updated by [email or web address]: Jennifer Peterson on 03/18/20 7:[address] DC Needs: Resumption of [facility]. CM met with patient regarding DC needs/plans. Patient agrees to CM interview. PCP: Dr Swanson. Pharmacy: [facility]. HHS: Current with [facility]. DME: CPM, Justin, BSC, Walk-in shower w/seat. Emergency contact: Usama Florence, (spouse) [phone]. Patient gives permission to speak with her . Denies use of community resources or being hospitalized within past 30 days. Patient feels her home is a safe environment. Transportation at DC will be her , Usama. CM will contact [facility] 03/18. Coverage Notice Reviewer: [id number] - Jennifer Peterson Notice Issued Date-Time: 03/19/2020 13:35 Notice Type: IM Discharge Notice Notice Delivered To: Patient Relationship to Patient: Self Embedded Nurse Name: Marlyn Florence Delivery Method: HAND - Hand Delivered Sandy Days: Prior Verbal Notification: Recipient Understood Notice: Yes Recipient Signature: Yes Med Rec Note Co-signed by Attending: Coverage Notice Comment: DC IMM signed/given to patient. Original to chart. Last DP export: 03/19/20 4:22 p Patient Name: MARLYN DUMONT Page 03828 at 1932 All edits/amendments must be made on the electronic document DICTATION DATE: 03/19/201930 OVERLAY PLASTICIAN: PHYLICIA 03/19/201930 RPT#: [id number] DC DATE:03/19/20 STATUS: DIS IN [facility] [address] [place] [address] END OF REPORT
== END 2020-03-19 13:50 | disposition home health service (06) | DRG 470 ==
LOC: D.SDCHOLD 03-17 07:31 → D.M3 03-17 07:31 → D.SDCHOLD 03-17 08:45 → D.M3 03-17 11:34
PROVIDERS: ADMIT Orthopaedic Surgery; ATTEND Orthopaedic Surgery
PROC: 0SRC0J9 Replacement of Right Knee Joint with Synthetic Substitute, Cemented, Open Approach (ICD-10-PCS; principal; 2020-03-17 08:45)
DX: M17.11 Unilateral primary osteoarthritis, right knee (principal); J43.9 Emphysema, unspecified; Z72.0 Tobacco use

== ENCOUNTER 2020-05-22 10:04 | Inpatient (IN) | payer MEDICARE ==
[~2020-05-22] VITALS: Ht 162.6 cm; Wt 45.4 kg
[~2020-05-22 10:04] MED LIST changes: +ELIQUIS2.5 MG PO; +FLUTICASONE PRO16 GM NASAL; +OXYBUTYNIN CHLOR5 MG; +PERCOCET 10-321 EAC1 PO
[2020-06-18 15:14] LABS: BASOPHILS 0.3 % (0-2); EOSINOPHILS 2.1 % (0-7); HEMATOCRIT 34.9 % (36.0-48.0); HEMOGLOBIN 11.4 g/dL (12-16); IMMATURE GRANULOCYTES 0.1 % (0-5); LYMPHOCYTES 19.4 % (15-50); MCH 28.8 pg (26.0-34.0); MCHC 32.7 g/dL (31.0-37.0); MCV 88.1 fL (80.0-100.0); MONOCYTES 9.2 % (2-11); NEUTROPHILS 68.9 % (40-80); PLATELET COUNT 253 10x3/uL (130-400); RBC 3.96 10x6/uL (4.00-5.40); RDW 15.1 % (11.5-14.5); WBC 7.5 10x3/uL (4.8-10.8)
[2020-06-18 15:22] LABS: APTT 35.2 SECONDS (22.8-39.4); INR 0.95 (0.85-1.17); PROTIME 12.7 SECONDS (11.6-15.0)
[2020-06-18 15:24] LABS: ANION GAP 6.2 mmol/L (8-16); CALCIUM 8.7 mg/dL (8.5-10.1); CREATININE - SERUM 0.8 mg/dL (0.6-1.3); POTASSIUM - SERUM 4.2 mmol/L (3.5-5.1)
[2020-06-18 17:35] LABS: BILIRUBIN NEGATIVE (NEGATIVE); GLUCOSE NEGATIVE (NEGATIVE); KETONE NEGATIVE (NEGATIVE); NITRITE NEGATIVE (NEGATIVE); UROBILINOGEN NORMAL (NORMAL)
[2020-06-23] VITALS (12 sets, daily range): BP systolic 88–145; BP diastolic 42–81; BMI 17.2
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
--- NOTE | 2020-06-23 14:00 | NUR ---
SPOKE WITH HANNA PER PT REQUEST. UPDATE GIVEN. STATED HE WOULD CALL BACK LATER. CL IN REACH. WCTM
--- NOTE | 2020-06-23 14:21 | NUR ---
PT ASSISTED ON BED ROMEO AND OFF. STATES SHE IS COLD. AC IS OFF. BLANKETS ON HER. CL IN REACH. WCTM
[2020-06-23] MEDS ORDERED: DITROPAN XL 1010 MG PO (14:58)
--- NOTE | 2020-06-23 19:00 | NUR ---
PATIENT REQUESTED DITROPAN WITH [facility]. I EXPLAINED TO THE PATIENT THAT I WOULD CHECK TO SEE IF IT IS ORDERED AND IF NOT I WILL CONTACT THE DOCTOR. PATIENT VERBALIZED UNDERSTANDING. PATIENT DENIES OTHER NEEDS. ENCOURAGED THE PATIENT TO CALL IF SHE HAS NEEDS. WILL CONTINUE TO MONITOR.
[2020-06-24 03:01] VITALS: BP 90/43
[2020-06-24 04:04] VITALS: BP 107/46
--- NOTE | 2020-06-24 04:45 | NUR ---
PATIENT REFUSED CPM MACHINE THIS MORNING. EXPLAINED TO IMPORTANCE OF CPM MACHINE AND THAT HER DOCTOR HAS ORDERED FOR HER. PATIENT VERBALIZED UNDERSTANDING AND REFUSED.
[2020-06-24 06:00] LABS: HEMATOCRIT 26.7 % (36.0-48.0); HEMOGLOBIN 8.6 g/dL (12-16); MCH 28.3 pg (26.0-34.0); MCHC 32.2 g/dL (31.0-37.0); MCV 87.8 fL (80.0-100.0); MEAN PLATELET VOLUME 10.3 fL (7.4-10.4); RBC 3.04 10x6/uL (4.00-5.40); WBC 5.2 10x3/uL (4.8-10.8)
--- NOTE | 2020-06-24 06:45 | NUR ---
RESTING IN BED WITH EYES OPEN. C/O HEADACHE, 04/16. WILL NOTIFY PHYSICIAN. NO S/S OF ACUTE DISTRESS NOTED. ON BEDREST, UP WITH PHYSICAL THERAPY TODAY. USES BEDPAN. PLEXIBOOT ON LLE, SCD ON RLE. GEMA HOSE ON. POD #1 LTK, DRESSING C/D/I. REFUSED CPM THIS AM. IV TO LEFT FOREARM, D5 1/2 NS INFUSING @ 100ML/HR. SITE PATENT WITHOUT REDNESS OR SWELLING. DENIES ANY NEEDS AT THIS TIME. CALL LIGHT IN REACH. WILL CONTINUE TO MONITOR.
[2020-06-24 07:47] VITALS: BP 104/45
--- NOTE | 2020-06-24 08:59 | NUR ---
I have reviewed this patient and I concur with the Shift Assessment completed by the Licensed Practical Nurse today this shift.
--- NOTE | 2020-06-24 10:18 | NUR ---
PATIENT REFUSED TO STAY UP IN THE CHAIR FOR THERAPY. WAS OOB FOR APPROXIMATELY 30-45 MINUTES. PATIENT STATED, "I DID NOT SLEEP LAST NIGHT AND I NEED TO REST." THIS NURSE EDUCATED PATIENT ON THE BENEFITS OF SITTING UP IN THE CHAIR FOR AWHILE. PATIENT STILL INSISTED THAT SHE WAS GOING TO GET BACK IN THE BED AND PUT HERSELF BACK TO BED WITHOUT THIS NURSES ASSISTANCE. THIS NURSE STOOD BY PATIENT DURING TRANSFER INTO BED.
[2020-06-24 11:19] VITALS: Ht 162.6 cm; Wt 45.4 kg
[2020-06-24 11:21] VITALS: BP 149/68
[2020-06-24 17:09] VITALS: BP 150/64
[2020-06-24 19:20] VITALS: BP 169/69
--- NOTE | 2020-06-24 19:20 | NUR ---
PATIENT RESTING IN BED WITH NO S/S OF DISTRESS AND DENIES NEEDS AT THIS TIME. BED IN LOWEST POSITION AND CALL LIGHT WITHIN REACH. VSS. ENCOURAGED THE PATIENT TO CALL IF SHE HAS NEEDS. WILL CONTINUE TO MONITOR.
--- NOTE | 2020-06-24 19:24 | NUR ---
A&O RESTING IN BED WITH EYES OPEN. C/O PAIN 08/16, GAVE NORCO FOR PAIN. NO S/S OF ACUTE DISTRESS NOTED. ON CPM. DENIES ANY NEEDS AT THIS TIME. CALL LIGHT IN REACH. WILL CONTINUE TO MONITOR.
--- NOTE | 2020-06-24 21:02 | NUR ---
ADMINISTERED MEDS PER ORDERS. PATIENT DENIES OTHER NEEDS. WILL CONTINUE TO MONITOR.
[2020-06-25 00:32] VITALS: BP 155/62
[2020-06-25 03:53] VITALS: BP 175/74
--- NOTE | 2020-06-25 04:40 | NUR ---
PLACED PATIENT ON CPM TO LEFT KNEE
[2020-06-25 07:14] LABS: HEMATOCRIT 28.2 % (36.0-48.0); HEMOGLOBIN 9.2 g/dL (12-16); MCH 28.2 pg (26.0-34.0); MCHC 32.6 g/dL (31.0-37.0); MCV 86.5 fL (80.0-100.0); MEAN PLATELET VOLUME 10.6 fL (7.4-10.4); RBC 3.26 10x6/uL (4.00-5.40)
[2020-06-25 07:34] LABS: WBC 7.1 10x3/uL (4.8-10.8)
[2020-06-25 08:18] VITALS: BP 144/72
--- NOTE | 2020-06-25 10:19 | NUR ---
PT ALERT X 4. BREATH SOUNDS CLEAR BILAT. IV TO LEFT FOREARM, SALINE LOCKED. LEFT KNEE DRESSING CDI. PT REPORTING PAIN OF 8/10, MEDICATED PER ORDERS. NO OTHER NEEDS AT THIS TIME.
[2020-06-25 11:46] VITALS: BP 139/91
[2020-06-25] MEDS ORDERED: HYDROCODON-ACE1 EA10 PO (13:02)
[2020-06-25] MEDS ORDERED: ELIQUIS2.5 MG PO (13:02)
--- NOTE | 2020-06-25 13:40 | MORECARE ---
CASE MANAGEMENT DISCHARGE SUMMARY PATIENT: ELEANOR DUMONT UNIT: [id number] ADM DATE: 06/23/20 AGE: 74 : 45 SEX: F ROOM/BED: D.1211 AUTHOR: FRANCOISE WINSTON PHYSICIAN: REFERRING PHYSICIAN: BRET MEDINA MD DATE OF SERVICE: 06/25/20 Discharge Plan Patient Name: ELEANOR DUMONT Facility: [facility]:[place] : 1945 Planned Disposition: Home Health Service Anticipated Discharge Date: 06/25/20 Discharge Date: Expected LOS: 2 Initial Reviewer: [email or web address] Initial Review Date: 06/25/2020 Generated: 06/25/20 2:40 pm Patient Name: ELEANOR DUMONT Page [phone] at 1340 All edits/amendments must be made on the electronic document DICTATION DATE: 06/25/20 1340 MEAT SALES AND STORAGE MANAGER: PHYLICIA 06/25/20 1340 RPT#: [id number] DC DATE: STATUS: ADM IN [facility] [address] [place] [address] END OF REPORT
--- NOTE | 2020-06-25 13:50 | MORECARE ---
CASE MANAGEMENT DISCHARGE SUMMARY PATIENT: ELEANOR HERRMANN UNIT: [id number] ADM DATE: 06/23/20 AGE: 74 : 45 SEX: F ROOM/BED: D.1211 AUTHOR: FRANCOISE WINSTON PHYSICIAN: REFERRING PHYSICIAN: BRET MEDINA MD DATE OF SERVICE: 06/25/20 Discharge Plan Patient Name: ELEANOR HERRMANN Facility: [facility]:[place] : 1945 Planned Disposition: Home Health Service Anticipated Discharge Date: 06/25/20 Discharge Date: Expected LOS: 2 Initial Reviewer: [email or web address] Initial Review Date: 06/25/2020 Generated: 06/25/20 2:49 pm Comments DCP- Discharge Planning Updated by [email or web address]: Yamilka Harris on 06/25/20 12:[address] Patient Name: ELEANOR HERRMANN Admission Status: Urgent Accout number: [id number] Admission Date: 06-23-2020 : 1945 Admission Diagnosis: Attending: BRET MEDINA Current LOS: 2 Anticipated DC Date: 06-25-2020 Planned Disposition: Home Health Service Primary Insurance: MEDICARE A & B Discharge Planning Comments: CM met with patient to discuss discharge planning / needs. Patient states she plans to discharge to home where she lives with her . States the home environment is safe. States her will transport her home upon hospital discharge. States she wants to use [employer]. Signed ANA for [employer] and [facility] [facility], Signed DC IMM. Copies on chart. CM called and spoke with Ray at [facility] about referral. Agency will admit patient or Tuesday. CM faxed records as requested. CM informed patient of planned home health admit or Tuesday. Gave patient agency's phone number. Patient voiced understanding and satisfaction with discharge plan. Denies any other discharge planning needs at this time. CM will continue to follow and assist as needed with discharge planning / needs. Senior Software Engineering Manager: Yamilka Harris DCPIA - Discharge Planning Initial Assessment Updated by [id number]: Yamilka Harris on 06/25/20 1:41 pm * Is the patient Alert and Oriented? Yes * How many steps to enter\exit or inside your home? * PCP Dr. Swanson * [place] [facility] * Preadmission Environment Home with Family * ADLs Independent * Equipment Bedside Commode Grab Bars Rolling Walker * Other Equipment CPM-from [facility] * List name and contact numbers for known caregivers / representatives who currently or will assist patient after discharge: Usama Herrmann, spouse, * Verbal permission to speak to the caregivers and representatives has been obtained from the patient. Yes * Community resources currently utilized None * Please name any agencies selected above. [facility], [facility] [facility] * Additional services required to return to the preadmission environment? Yes * Can the patient safely return to the preadmission environment? Yes * Has this patient been hospitalized within the prior 30 days at any hospital? No External Providers [facility] Next Contact Date: Service Request Date: Service Type: Resolution: Reviewer: Comments: Coverage Notice Reviewer: OSCAR Harris Notice Issued Date-Time: 06/25/2020 10:15 Notice Type: Patient Choice Letter Notice Delivered To: Patient Relationship to Patient: Self Vacuum Cleaner Repairer Name: Delivery Method: HAND - Hand Delivered Sandy Days: Prior Verbal Notification: Recipient Understood Notice: Yes Recipient Signature: Yes Med Rec Note Co-signed by Attending: Coverage Notice Comment: [facility] and [facility] Reviewer: [email or web address] Harris Notice Issued Date-Time: 06/25/2020 10:15 Notice Type: IM Discharge Notice Notice Delivered To: Patient Relationship to Patient: Self Vacuum Cleaner Repairer Name: Delivery Method: HAND - Hand Delivered Sandy Days: Prior Verbal Notification: Recipient Understood Notice: Yes Recipient Signature: Yes Med Rec Note Co-signed by Attending: Coverage Notice Comment: Last DP export: 06/25/20 12:40 p Patient Name: ELEANOR HERRMANN Page [id number] at 1350 All edits/amendments must be made on the electronic document DICTATION DATE: 06/25/20 134 HOME SECURITY ALARM INSTALLER: PHYLICIA 06/25/20 134 RPT#: [id number] DC DATE: STATUS: ADM IN [facility] [address] [place] [address] END OF REPORT
--- NOTE | 2020-06-25 16:14 | NUR ---
DISCHARGE PAPERWORK SIGNED, ALL QUESTIONS ANSWERED. IV TO LEFT FOREARM DC'D, TIP INTACT. DRESSING TO LEFT KNEE CHANGED PER ORDERS. ESCORTED OUT VIA WHEELCHAIR.
--- NOTE | 2020-06-26 12:01 | MORECARE ---
CASE MANAGEMENT DISCHARGE SUMMARY PATIENT: ELEANOR DUMONT UNIT: [id number] ADM DATE: 06/23/20 AGE: 74 : 45 SEX: F ROOM/BED: D.1211 AUTHOR: CATRACHITO,DOC PHYSICIAN: REFERRING PHYSICIAN: BRET MEDINA MD DATE OF SERVICE: 06/26/20 Discharge Plan Patient Name: ELEANOR DUMONT Facility: [facility]:[place] : 1945 Planned Disposition: Home Health Service Anticipated Discharge Date: 06/25/20 Discharge Date: 06/25/2020 Expected LOS: 2 Initial Reviewer: [email or web address] Initial Review Date: 06/25/2020 Generated: 06/26/20 1:00 pm Comments DCP- Discharge Planning Updated by [email or web address]: Yamilka Harris on 06/25/20 12:[address] Patient Name: ELEAONR DUMONT Admission Status: Urgent Accout number: [id number] Admission Date: 06-23-2020 : 1945 Admission Diagnosis: Attending: RBET MEDINA Current LOS: 2 Anticipated DC Date: 06-25-2020 Planned Disposition: Home Health Service Primary Insurance: MEDICARE A & B Discharge Planning Comments: CM met with patient to discuss discharge planning / needs. Patient states she plans to discharge to home where she lives with her . States the home environment is safe. States her will transport her home upon hospital discharge. States she wants to use [employer]. Signed ANA for [employer] and [employer] [facility], Signed DC IMM. Copies on chart. CM called and spoke with Ray at [facility] about referral. Agency will admit patient or Tuesday. CM faxed records as requested. CM informed patient of planned home health admit or Tuesday. Gave patient agency's phone number. Patient voiced understanding and satisfaction with discharge plan. Denies any other discharge planning needs at this time. CM will continue to follow and assist as needed with discharge planning / needs. Area Director Of Home Health Sales: Yamilka Harris DCPIA - Discharge Planning Initial Assessment Updated by [email or web address]: Yamilka Harris on 06/25/20 1:41 pm * Is the patient Alert and Oriented? Yes * How many steps to enter\exit or inside your home? * PCP Dr. Swanson * Pharmacy [facility] * Preadmission Environment Home with Family * ADLs Independent * Equipment Bedside Commode Grab Bars Rolling Walker * Other Equipment CPM-from [employer] [facility] * List name and contact numbers for known caregivers / representatives who currently or will assist patient after discharge: Usama Dumont, spouse, * Verbal permission to speak to the caregivers and representatives has been obtained from the patient. Yes * Community resources currently utilized None * Please name any agencies selected above. [facility], [facility] * Additional services required to return to the preadmission environment? Yes * Can the patient safely return to the preadmission environment? Yes * Has this patient been hospitalized within the prior 30 days at any hospital? No Coverage Notice Reviewer: [id number] Bertha Harris Notice Issued Date-Time: 06/25/2020 10:15 Notice Type: Patient Choice Letter Notice Delivered To: Patient Relationship to Patient: Self Import Coordinator Name: Delivery Method: HAND - Hand Delivered Sandy Days: Prior Verbal Notification: Recipient Understood Notice: Yes Recipient Signature: Yes Med Rec Note Co-signed by Attending: Coverage Notice Comment: [facility] Reviewer: [id number] Bertha Harris Notice Issued Date-Time: 06/25/2020 10:15 Notice Type: IM Discharge Notice Notice Delivered To: Patient Relationship to Patient: Self Import Coordinator Name: Delivery Method: HAND - Hand Delivered Sandy Days: Prior Verbal Notification: Recipient Understood Notice: Yes Recipient Signature: Yes Med Rec Note Co-signed by Attending: Coverage Notice Comment: Last DP export: 06/25/20 12:50 p Patient Name: ELEANOR DUMONT Page [phone] at 1201 All edits/amendments must be made on the electronic document DICTATION DATE: 06/26/20 1200 KNITTING DEMONSTRATOR: PHYLICIA 06/26/20 1200 RPT#: [id number] DC DATE:06/25/20 STATUS: DIS IN [facility] [address] [place] [address] END OF REPORT
== END 2020-06-25 16:15 | disposition home health service (06) | DRG 470 ==
LOC: D.M3 06-23 06:41 → D.SDCHOLD 06-23 06:41 → D.M3 06-23 12:22
PROVIDERS: ADMIT Orthopaedic Surgery; ATTEND Orthopaedic Surgery
PROC: 0SRD0JZ Replacement of Left Knee Joint with Synthetic Substitute, Open Approach (ICD-10-PCS; principal; 2020-06-23 08:45)
DX: M17.12 Unilateral primary osteoarthritis, left knee (principal); I10 Essential (primary) hypertension; J43.9 Emphysema, unspecified; Z72.0 Tobacco use

== ENCOUNTER → 2020-06-27 10:33 | Outpatient (CLI) | payer MEDICARE ==
[2020-06-24 11:19] VITALS: BMI 17.1
[~2020-06-27 10:33] MED LIST changes: +DITROPAN XL 1010 MG PO; +HYDROCODON-ACE1 EA10 PO
== END | disposition home or self-care (01) ==
LOC: D.US 09:30
PROVIDERS: ATTEND Orthopaedic Surgery
DX: R22.42 Localized swelling, mass and lump, left lower limb (principal)